=== PATIENT | male | born 1995 | race Hispanic/Latino ===

== ENCOUNTER 2020-04-26 20:08 | Emergency (ER) | payer SELFPAY ==
[2020-04-26] MEDS ORDERED: Metoclopramide HCl 10 MG/2 ML VIAL ONE (21:13)
[2020-04-26] MEDS ORDERED: Ketorolac Tromethamine 30 MG/ML VIAL ONE (21:13)
[2020-04-26] MEDS ORDERED: diphenhydrAMINE 50 MG/ML VIAL ONE (21:13)
== END 2020-04-26 22:23 | disposition home or self-care (01) ==
LOC: ERS 20:08
DX: G43.009 Migraine without aura, not intractable, without status migrainosus (principal)
CPT/HCPCS: 96365; 96375; J1200; J1885; J2765